=== PATIENT | male | born 1965 | race Caucasian/White ===

== ENCOUNTER 2019-03-18 10:33 | Day surgery (SDC) | payer MEDICAID ==
[~2019-03-18 10:33] MED LIST: Sodium Chloride 0.9% 1,000 ML IV SCH
[2019-03-18] MEDS ORDERED: fentaNYL 100 MCG/2 ML SDV ONE (10:50)
[2019-03-18] MEDS ORDERED: Propofol 200 MG/20 ML SDV ONE ×2 (10:50→12:03)
[2019-03-18] MEDS ORDERED: Midazolam 1 MG/ML 2 ML SDV ONE (10:50)
--- NOTE | 2019-03-19 09:21 | PROC ---
DATE OF PROCEDURE: 03/18/2019 SURGEON: Foreign Mcnamara MD PROCEDURE: Colonoscopy. PREPROCEDURE DIAGNOSIS: Blood in stool. POSTPROCEDURE DIAGNOSES: 1. Blood in stool. 2. Normal colonoscopy. DESCRIPTION OF PROCEDURE: Risks and goals of the procedure reviewed with the patient, and he gave informed consent to proceed. He was brought back to the endoscopy room. Sedation monitoring provided by Robbi from the Anesthesia Service. Time-out was held prior to the procedure to confirm right patient, right side, right procedure, as well as to review potential safety issues, of which there were none. He was placed in a left lateral decubitus position. After adequate sedation was achieved, digital rectal examination was performed, which was unremarkable. Following this, a flexible colonoscope was placed and advanced out through the colon to the cecum. Scope was then slowly withdrawn through the entire length of the colon to the rectum where it was retroflexed, straightened and removed. There were no significant mucosal polyps, masses, or lesions seen and the procedure was otherwise completed without complication. He will be monitored in PAR and outpatient area until fully recovered from IV sedation and then discharged to home. Foreign Mcnamara MD /[id number]
== END 2019-03-18 14:41 | disposition home or self-care (01) ==
LOC: JP.SDS 10:33
PROVIDERS: ATTEND Hospitalist
DX: K92.1 Melena (principal)
CPT/HCPCS: 45378; J2250; J2704; J3010; J7030